=== PATIENT | female | born 1970 | race Caucasian/White ===

== ENCOUNTER 2021-04-29 09:29 | Outpatient (CLI) | payer OTHER, SELFPAY ==
--- NOTE | 2021-04-29 09:53 | XR_ITS ---
WS: [id number] Right foot, 3 views, 04/29/2021. Clinical Data: R FOOT PAIN Comparison: None. Findings: No fractures or dislocations are seen. No bone destruction or erosion is noted. The joint spaces and soft tissues are normal. No radiopaque foreign bodies are seen. There is a plantar spur. XR/XR foot RT min 3V* [id number] Impression: Negative right foot.
== END 2021-04-29 09:30 | disposition home or self-care (01) ==
PROVIDERS: Visit Provider Nurse Practitioner Family
DX: M79.671 Pain in right foot (principal)
CPT/HCPCS: 73630

== ENCOUNTER → 2021-08-01 16:43 | Outpatient (BNVA) | payer OTHER, SELFPAY | PROVIDERS: Visit Provider Emergency Medicine | DX: L08.9 Local infection of the skin and subcutaneous tissue, unspecified (principal) | CPT/HCPCS: 80048; 83036; 85025 ==

== ENCOUNTER 2021-10-28 09:20 | Outpatient (CLI) | payer OTHER, SELFPAY | END 2021-10-28 09:21 | disposition home or self-care (01) | LOC: SPT 09:20 | PROVIDERS: Visit Provider Podiatrist Foot & Ankle Surgery | DX: S93.691D Other sprain of right foot, subsequent encounter (principal); X58.XXXD Exposure to other specified factors, subsequent encounter | CPT/HCPCS: 97760; L4361 ==

== ENCOUNTER → 2023-08-27 09:01 | Outpatient (BNVA) | payer OTHER, SELFPAY | PROVIDERS: Visit Provider Physician Assistant | DX: M65.342 Trigger finger, left ring finger; M65.311 Trigger thumb, right thumb | CPT/HCPCS: 73130 ==

== ENCOUNTER 2023-10-01 06:15 | Day surgery (SDC) | payer OTHER, SELFPAY ==
[2023-10-01 06:31] VITALS: BMI 25.4
--- NOTE | 2023-10-01 06:44 | PC.NURSE ---
IV is to be placed in pt's foot per Dr. Li
[2023-10-01] MEDS: sodium chloride 0.9% 1,000 ML 30 ML IV (07:08)
--- NOTE | 2023-10-01 07:09 | W.PM.OPSFHP ---
Same Day Surgery H&P Indication for Procedure/HPI DATE OF PROCEDURE: October 01, 2023 CHIEF COMPLAINT/INDICATIONFOR SURGICAL PROCEDURE: Left ring finger trigger, right thumb trigger PREOP DIAGNOSIS: Left ring finger trigger, right thumb trigger PLANNED PROCEDURE: Operation Date: 10/01/23 08:00 Proposed Procedures p left ring trigger finger release and right thumb trigger release(Right) - Isai Li DO Medications/Allergies* Home Medications Medication Instructions Recorded Confirmed Type No Known Home Medications 08/27/23 08/27/23 History Allergies/Adverse Reactions Allergy/AdvReac Type Severity Reaction Status Date / Time morphine Allergy ADR-Vomitin Verified 10/01/23 06:45 g Pertinent History/Comorbid Conditions* Medical History (Updated 08/27/23 @ 09:35 by MICHELLE Alejandra) Heel pain, chronic Social History Smoking and tobacco/nicotine status: never used tobacco/nicotine Pertinent Exam Findings alert, oriented x 3, operative site marked and procedure specific exam findings Please refer to detailed orthopedic examination on 08/27/2023: Left hand?A1 lexis tenderness over the ring finger and mechanical locking and catching noted. No other A1 lexis tenderness to palpation and no other locking or catching of any fingers. Full range of motion fingers. Fingers are warm and well-perfused. Right hand-A1 lexis tenderness over the thumb and mechanical locking and catching noted. No other A1 lexis tenderness to palpation and no other locking or catching of any fingers. Full range of motion fingers. Fingers are warm and well-perfused. Recommendations Surgery/Procedure today Other Plans: Plan to proceed to the OR today for left ring finger trigger release and right thumb trigger release. Patient understands the ins and outs procedure risk benefits complication alternatives with surgery and through shared decision make elects proceed with surgical intervention. All questions answered at this time. Coding Level of Care Code Acute Code for g Fwd
[2023-10-01] MEDS: ketorolac 30 mg/mL INJ IVP (07:10)
[2023-10-01] MEDS: acetaminophen 1,000 MG/100 ML PIGGYBACK 400 MG IV (07:14)
[2023-10-01] MEDS: scopolamine 1.5 Patch 1 PATCH TRANSDERMA (07:18)
--- NOTE | 2023-10-01 08:01 | ANES.PREANE2 ---
Pre-Anesthetic Assessment Height/Weight: Height 5 ft Weight 130 lb O2 Del Method Room Air 10/01/23 06:31 Preop Diagnosis: Left ring finger trigger, right thumb trigger Operation Date: 10/01/23 08:00 Proposed Procedures p left ring trigger finger release and right thumb trigger release(Right) - Isai Li, Last intake: Intake Last Liquid Date 09/30/23 Last Liquid Time 20:00 Last Solid Date 09/30/23 Last Solid Time 19:00 Social No alcohol and No tobacco Exam alert, oriented x 3, clear to auscultation bilaterally and regular rate & rhythm Airway Submandibular: within normal limits Cervical ROM: within normal limits Mallampati: Class III Comments: Comments: multiple missing teeth Anesthetic Plan ASA status: 2 Anesthesia: MAC Other: No prior issues with anesthesia NPO since midnight Patient denies cardiac or pulmonary issues Quit smoking 10 years ago Plan for MAC anesthesia Medications/Allergies Home Medications Medication Instructions Recorded Confirmed Last Taken Type ondansetron 4 mg disintegrating 4 mg PO Q8H Nausea and vomiting 10/01/23 Unknown Rx tablet postop 3 days #9 tabs tramadol 50 mg tablet 50 mg PO Q6H PRN pain 5 days #20 10/01/23 Unknown Rx tabs Allergies Allergy/AdvReac Type Severity Reaction Status Date / Time morphine Allergy ADR-Vomitin Verified 10/01/23 06:45 g Current Medications Generic Name Dose Route Start Last Admin Trade Name Freq PRN Reason Stop Dose Admin Sodium Chloride 1,000 mls @ 30 mls/hr 10/01/23 07:00 10/01/23 07:08 Sodium Chloride 0.9% IV 10/02/23 06:59 30 mls/hr .Q24H YOVANI Administration PFSH Anesthesia Medical History Heel pain, chronic Social History Smoking and tobacco/nicotine status: never used tobacco/nicotine Female Reproductive History Spontaneous abortions: No Data Anesthesia Cardiac Studies: No Data to Display
[2023-10-01] MEDS: ceFAZolin 2,000 MG in sodium chloride 0.9% (plus) 50 ML 100 MG IV (08:06)
[2023-10-01] MEDS: ROPivacaine 0.5% SDV 30 mL 50 MG INJECTION (08:59)
[2023-10-01] MEDS: lidocaine 1% INJ 10 mL (per mL) INJECTION (09:00)
--- NOTE | 2023-10-01 09:09 | W.PM.BPON ---
Date of Procedure: 10/01/2023 Surgeon: Isai Li DO Manufacturing Applications Engineer(s): None Procedure(s) performed: Left ring finger trigger release Right thumb trigger release Findings of the procedure(s): Left ring finger trigger and right thumb trigger, patient underwent release as planned without issues or complications taken to PACU stable condition. Estimated blood loss: 2 mL Specimen(s) removed: None Post-operative diagnosis: Left ring finger trigger, right thumb trigger
--- NOTE | 2023-10-01 09:10 | PM.OP ---
Operative Report Date of procedure: October 01, 2023 Surgeon: Isai Li DO Procedure: Preoperative diagnosis: Left ring finger trigger Right thumb trigger Post-op diagnosis: Same Procedure done: Left ring finger?trigger?release Right thumb trigger release Surgeon: Isai Li DO Estimated blood loss: 2cc Tourniquet time 6 minutes for left 4 minutes for right Complications: None Condition: stable Disposition: same day Brief History: Patient's been seen and worked up in the outpatient setting and findings consistent with preoperative diagnosis of Left ring finger?trigger and right trigger thumb.? Patient is failed conservative treatment.? Continues to have mechanical locking and catching.? Severe pain as well.? We talked about treatment options nonoperative versus operative intervention.? ?Patient understands the risk benefits complication alternatives of surgical nonsurgical treatment options.? Understanding his risks with surgery patient elects proceed with surgical intervention.? Consent obtained in the office.? Here today to proceed with surgical intervention for left ring finger trigger release, right trigger thumb release.? All questions answered. Procedure: Patient was seen and evaluated in the preoperative holding area.? Consent was reviewed and signed with patient.? Seen evaluated by Anesthesia Department.? Once cleared for surgery was brought back to the operative suite.? Placed in supine position on the OR table all bony prominences well-padded patient properly secured to the bed.? Patient's Left arm was then placed to the armboard.? A nonsterile tourniquet applied to the Left upper arm.? Patient's Left upper extremity was then prepped and draped in standard orthopedic fashion.? Final timeout performed.? Patient received appropriate preoperative antibiotics. Esmarch tourniquet was used exsanguinate the Left upper extremity tourniquet insufflated to 250 mmHg. Under sterile aseptic technique local digital block was performed to the Left ring finger.? Once appropriately anesthetized a standard horizontal oblique incision was made centering over the A1 lexis following patient's flexor crease.? Sharp scalpel incision was made only through skin and then switched to Littler dissection scissors and spread longitudinally directly over the flexor tendon sheath.? I then mobilized both radially and ulnarly and Kasdan retractors were used and placed by my retail assistant store manager to protect neurovascular bundle.? Next I visualized the A1 lexis and this was incised with a scalpel.? I then switched to dissection scissors and released the A1 lexis both proximally as well as distally to its entirety.? Significant tendon sheath fluid was noted consistent with inflammation.? flexor tendons had no tear.? At this point I utilized a rag nail and pulled the tendons FDS and FDP out of the incision and no?triggering was noted.? I then had anesthesia wake up the patient and patient was able to actively flex and extend with no?triggering.? This point thorough irrigation was performed.? Tourniquet deflated hemostasis satisfactory with bipolar.? I then subsequently closed the incision with interrupted nylon suture.? Xeroform 4 x 4's, Kerlix and an Benedict wrap was applied for a bulky soft dressing.? Dressings were subsequently taken down and we switched to the right side procedure. The bed was then rotated and the right armboard was applied to the right upper extremity patient kept in supine position and was kept under MAC anesthesia. Patient had a nonsterile tourniquet applied to the right upper arm. Patient then had the right upper extremity prepped and draped standard orthopedic fashion. Once again the timeout was performed for a right thumb trigger release. Esmarch tourniquet was used exsanguinate the right upper extremity and tourniquet was insufflated to 250 mmHg.? I identified patient's right thumb MP flexion crease marked appropriate incision transversely across the flexion crease within Shazia's lines sharp scalpel incision was made only through skin.? Once this was done I switched to Littler dissection scissors this I then subsequently spread longitudinally in the planes of the digital nerves.? Once these were identified these were protected by my retail assistant store manager with Yuvaldan retractors.? Next I identified directly over the A1 lexis of the right thumb.? This was significantly thickened and identified to be the area of patient's thumb?triggering.? I used sharp scalpel to incise the A1 lexis and then utilized my retail assistant store manager to retract the ability and under loupe magnification released the entirety of the A1 lexis both proximally and distally up to the oblique lexis.? This point time the tendon was then inspected and found to be healthy there was some inflammation around the tendon itself but no evidence of tearing and no need for any debridement.? The Ragnell was used to pull the tendon out of the incision and there was no mechanical?triggering I then took the patient's thumb through range of motion no recurrent?triggering was noted. Patient was then gently awakened by anesthesia in order to follow simple commands was able to flex and extend the thumb with no mechanical triggering.? ?I then let the tourniquet down identified and maintained exact hemostasis with bipolar electrocautery irrigated the wound bed and then closed the incision with interrupted nylon suture. Incision sites were then dressed with Xeroform 4 x 4's Kerlix David wrap and an Benedict wrap.? Patient was then awakened from anesthesia and taken to PACU in stable condition. Disposition: Patient taken back in stable condition recovering well.? Patient will receive appropriate discharge instruction as well as pain medication postoperatively.? Patient to follow-up with orthopedics in the office in 2 weeks for repeat evaluation and incision check.? Patient understands that any questions or concerns and contact the office.? All questions answered.
[2023-10-01 09:17] VITALS: BP 119/74; PULSE 76; RESP 12; TEMP 36.3; O2SAT 97
[2023-10-01 09:22] VITALS: BP 119/70; PULSE 72; RESP 15
[2023-10-01 09:27] VITALS: BP 126/70; PULSE 70; RESP 15
[2023-10-01 09:32] VITALS: BP 132/79; PULSE 71; RESP 16; TEMP 36.3
[2023-10-01 09:38] VITALS: BP 136/81; PULSE 57; RESP 16; TEMP 36.3; O2SAT 94
--- NOTE | 2023-10-01 10:20 | ANE.PACU2 ---
Inpatient post-anesthesia follow up: Airway intact: Yes Vital signs: Temperature 97.4 F Pulse Rate 57 Respiratory Rate 16 Blood Pressure 136/81 Pulse Oximetry 94 Oxygen Delivery Me thod Room Air Oxygen Flow Rate Fraction of Inspir ed Oxygen Hydration adequate: Yes Nausea and vomiting: Yes Pain level: 1 Mental status: Baseline
== END 2023-10-01 10:20 | disposition home or self-care (01) ==
PROVIDERS: PCP Emergency Medicine; Visit Provider Student in an Organized Health Care Education/Training Program
PROC: (CPT 26055; principal; 2023-10-01 08:00)
DX: M65.342 Trigger finger, left ring finger (principal); M65.311 Trigger thumb, right thumb
CPT/HCPCS: 26055 ×2; J0131; J0690; J1885; J2250; J2704; J2795; J3010; J7030

== ENCOUNTER → 2023-11-16 09:15 | Outpatient (BNVA) | payer OTHER, SELFPAY | PROVIDERS: Visit Provider Nurse Practitioner | DX: R45.0 Nervousness (principal); R53.83 Other fatigue | CPT/HCPCS: 80053; 83036; 84443; 85025; 86003; 86008 ==